=== PATIENT | male | born 1990 | race Hispanic/Latino ===

== ENCOUNTER 2023-07-22 14:32 | Emergency (ER) | payer SELFPAY ==
--- NOTE | ~2023-07-22 | XR_ITS ---
EXAM: XR hand LT min 3V DATE: 07/22/2023 15:26 HISTORY: 1ST DIGIT LACERATION . COMPARISON: None available. FINDINGS: Normal mineralization. No fracture or dislocation. No lytic or blastic lesion. Joint space s are maintained. Small notch-like cortical irregularity along the palmar and ulnar surface of the fi rst distal phalange. Punctate radiopaque foreign body overlying the dorsal soft tissues of the thumb at the level of the proximal aspect of the distal phalange. IMPRESSION: Small nodular-like cortical irregularity along the palmar and ulnar surface of the first distal phala nge, may represent an acute osseous defect depending on the location and depth of the soft tissue lac eration. Early infectious change is not excluded. Punctate radiopaque foreign body overlying the dorsal soft tissues of the thumb at the level of the p roximal aspect of the distal first phalange. Reviewed, dictated and finalized at location [facility]. IMPRESSION: Small nodular-like cortical irregularity along the palmar and ulnar surface of the first distal phalange, may represent an acute osseous defect depending on t he location and depth of the soft tissue laceration. Early infectious change is not excluded. Punctate radiopaque foreign body overlying the dorsal soft tissues of the thumb at the level of the proximal aspect of the distal first phalange.
[2023-07-22 14:32] VITALS: BP 127/87; PULSE 75; RESP 20; TEMP 37.1; O2SAT 97
--- NOTE | 2023-07-22 14:56 | ED.UPPEXIN ---
HPI - Extremity Injury (Upper) General Chief Complaint: Wound/Laceration Stated Complaint: thumb laceration Time Seen by Provider: 07/22/23 14:55 Source: patient Mode of arrival: ambulatory Limitations: no limitations History of Present Illness HPI narrative: 32-year-old male who was using a chain saw presents to the ER with -- 3 cm full-thickness laceration of left 1st webspace -- inability to extend the distal phalanx of the thumb -- profuse bleeding requiring a tonic it at the wrist. complaint: injury to: left and hand Onset (ago): hour(s) ( 1 hour ago) Other Extremity Injury: Left: hand Other injuries: none Handedness: right Place: work Severity: moderate Relieving factors: none Exacerbating factors: none Context: laceration Associated symptoms: denies other symptoms Related Data Allergies Allergy/AdvReac Type Severity Reaction Status Date / Time No Known Allergies Allergy Verified 07/22/23 16:19 Review of Systems Review of Systems: All systems reviewed & are unremarkable except as noted in HPI and below Constitutional: Constitutional: Reports as per HPI and Reports no additional constitutional complaints Eyes: Eyes: Reports as per HPI and Reports no additional eye complaints ENT: Reports system reviewed and no additional complaints, except as documented and Reports as per HPI Cardiovascular: Cardiovascular: Reports as per HPI and Reports no additional cardiovascular complaints Respiratory: Respiratory: Reports as per HPI and Reports no additional respiratory complaints Gastrointestinal: Gastrointestinal: Reports as per HPI and Reports no additional gastrointestinal complaints Genitourinary: Genitourinary: Reports no additional male genitourinary complaints and Reports as per HPI Musculoskeletal: Musculoskeletal: Reports no additional musculoskeletal complaints and Reports as per HPI Integumentary/Breasts: Skin/Breast: Reports system reviewed and no additional complaints, except as docu and Reports as per HPI Neurologic: Reports system reviewed and no additional complaints, except as documented and Reports as per HPI Comments: unable extend the distal phalanx of the left thumb Psychiatric: Psychiatric: Reports no additional psychiatric complaints and Reports as per HPI Endocrine: Endocrine: Reports no additional endocrine complaints and Reports as per HPI Hematologic/Lymphatic: Hematologic/Lymphatic: Reports no additional hematologic/lymphatic complaints and Reports as per HPI Allergic/Immunologic: Allergic/Immunologic: Reports no additional allergic/immunologic complaints and Reports as per HPI Exam Const: General: healthy appearing and ill appearing Nutritional Appearance: well nourished Orientation/consciousness: patient oriented x3 Limitations: no limitations HENMT: Head: normal to inspection Ears: external ears normal Face/Nose/Sinus: Normal external nose present Face and sinus: normal facial exam Mouth: Yes Normal oral and palatal mucosa present Throat: posterior oropharynx normal Eyes: Conjunctivae: conjunctivae normal Pupils: Equal, round and reactive pupils present EOM: EOMs intact bilaterally Direct Ophthalmoscopy: no photophobia Neck: Neck: normal visual inspection, no lymphadenopathy and no meningeal signs Chest: Chest palpation & inspection: normal inspection of the chest Resp: Effort & Inspection: normal respiratory effort Auscultation: clear to auscultation bilaterally Cardio: Rate: regular rate Rhythm: regular rhythm GI: GI Palp: Yes Soft to palpation Auscultation: normal bowel sounds Other: no tenderness/rigidity / rebound. : General: Yes no CVA tenderness Back/Spine/Pelvis: Back: no CVA tenderness Skin: General skin exam: normal color Rashes: no rashes Wounds: no wounds Neuro: General: patient oriented x3, moves all extremities, no meningeal signs, no focal motor deficits and CN's II-XI intact bilaterally Cranial nerves: Yes Nystagmus not
[2023-07-22] MEDS: TETANUS,DIPHTHERIA,AC PERTUSSIS ADULT 0.5 ML (ADACEL) IM (15:47)
[2023-07-22] MEDS: cefTRIAXone 1 GM VIAL IM (15:48)
[2023-07-22 16:03] VITALS: BP 128/79; PULSE 76; RESP 20; TEMP 36.9; O2SAT 97
== END 2023-07-22 16:44 | disposition home or self-care (01) ==
PROVIDERS: Emergency Provider Internal Medicine Critical Care Medicine
DX: S62.525B Nondisplaced fracture of distal phalanx of left thumb, initial encounter for open fracture (principal); Z23 Encounter for immunization; W29.3XXA Contact with powered garden and outdoor hand tools and machinery, initial encounter; Y99.0 Civilian activity done for income or pay
CPT/HCPCS: 12002; 73130; 90471; 90715; 96372; 99283; A4565; J0696